=== PATIENT | female | born 1955 | race Caucasian/White ===

== ENCOUNTER 2021-12-07 08:33 | Day surgery (SDC) | payer OTHER, BC ==
[~2021-12-07] VITALS: Ht 157.5 cm; Wt 68.9 kg
[2021-12-07] MEDS ORDERED: MIDAZOLAM 2 MG/2 ML VIAL ONE (10:42)
[2021-12-07] MEDS ORDERED: LIDOCAINE 2% 100 MG/5 ML UJET TP ONE (10:43)
[2021-12-07] MEDS ORDERED: fentaNYL citrate 0.05 MG/ML VIAL ONE (10:43)
[2021-12-07] MEDS ORDERED: fentaNYL citrate 0.05 MG/ML VIAL IVP ONE (14:35)
== END 2021-12-07 12:19 | disposition home or self-care (01) ==
LOC: MMU 08:33 → MOR 08:33
PROVIDERS: ATTEND Internal Medicine Gastroenterology
DX: K62.5 Hemorrhage of anus and rectum (principal); D12.8 Benign neoplasm of rectum; K57.30 Diverticulosis of large intestine without perforation or abscess without bleeding; K21.9 Gastro-esophageal reflux disease without esophagitis; F41.9 Anxiety disorder, unspecified; Z83.71 Family history of colonic polyps; F17.210 Nicotine dependence, cigarettes, uncomplicated; Z90.49 Acquired absence of other specified parts of digestive tract; Z20.822 Contact with and (suspected) exposure to COVID-19
CPT/HCPCS: 36470; 45381; 45385; 87426; 88305; J3010; J2250